=== PATIENT | male | born 1955 | race Caucasian/White ===

== ENCOUNTER 2017-01-10 17:53 | Observation (INO) ==
--- NOTE | 2017-01-10 18:24 | Emergency Department Note ---
Disposition Clinical Impression: Chest pain, Fall, Alcohol intoxication, Pleural effusion, COPD (chronic obstructive pulmonary disease), Abnormal EKG, Hallucinosis Disposition: Admitted As Inpatient Referrals: Alberto Yung Jr, MD [Primary Care Provider] - Forms: ED Satisfaction Letter General Adult HPI - General Chief complaint: ED Chest Pain Stated complaint: fall left shoulder pain and chest pain Time Seen by Provider: 01/10/17 18:03 - History of Present Illness HPI Narrative: 61-year-old male reports to the emergency department complaining of chest pain. He was brought in by EMS who found him at home laying on the ground. The patient can describe fully what happened. He thinks he may have passed out he is not sure he was in the bathroom when he walked out the next thing he knew his laying on the ground. The patient complains of shoulder pain. He also complains of chest pain. The patient reports the chest pain was sort of in the middle of the chest prior to him passing out he has not had any coughing of blood leg swelling or pain or fever. The patient has had some slight shortness of breath. He states he drinks several beers a day. There is no history of convulsion. There are reports he may have hit his head but he denies any significant head injury. There is no history of Dorota see's. There is no history of abdominal pain vomiting or diarrhea no history of bleeding or laceration no lower extremity pain and no problems moving the arms or legs independently. No numbness or weakness in the arms or legs no dysarthria or luis a confusion reported or noted. There is no history of anticoagulant therapy at this time. The patient had an echocardiogram and previous stress test back in 2014 which showed no major abnormalities. There is no history of coronary stent. He does have a history of COPD. There is no history of diabetes but he does have a reported history of hypertension. Pain Scale: 8 - Related Data Previous Rx's Medication Instructions Recorded HYDROcodone/Acet 5/325 mg [Jarrell 1 tab PO Q6HR PRN #20 tablet 07/05/15 5-325 mg] Naproxen [Naprosyn] 500 mg PO BID PRN #20 tablet 07/05/15 Diazepam [Valium] 5 mg PO TID #15 tablet 04/25/16 Diclofenac Sodium [Voltaren] 75 mg PO Q8HR #30 tablet. 04/25/16 Hydrocodone/Acetaminophen [Jarrell 1 - 2 tab PO Q6H PRN #15 tab 04/25/16 5-325 Tablet] Acetaminophen [Tylenol] 650 mg PO Q6HR PRN #12 tablet 10/04/16 Naproxen [Naprosyn] 500 mg PO BID 10 Days 11/24/16 Allergies Allergy/AdvReac Type Severity Reaction Status Date / Time ibuprofen Allergy Itching Verified 10/04/16 21:05 Past Medical History - Past Medical History Medical history: Reports: hypertension, COPD Surgical history: Reports: orthopedic, other Psychiatric history: Reports: no psych history, depression - Social History Smoking Status: Current every day smoker Smokeless Tobacco Status: No Alcohol use: Reports: heavy Drug use: Reports: none Physical Exam - General Limitations: no limitations General appearance: alert, in no apparent distress, other (The patient does smell of alcohol.) - Head Head exam: atraumatic, normocephalic, normal inspection - Eye Eye exam: Present: normal appearance, PERRL, EOMI. Absent: scleral icterus, conjunctival injection, miosis, mydriasis - ENT ENT exam: normal exam, normal oropharynx, mucous membranes moist, TM's normal bilaterally, normal external ear exam - Neck Neck exam: Present: normal inspection, full ROM, trachea midline. Absent: tenderness, meningismus - Chest Chest inspection: Present: normal inspection, symmetric chest wall rise. Absent : tenderness - Respiratory Respiratory exam: Present: normal lung sounds bilaterally. Absent: respiratory distress - Cardiovascular Cardiovascular exam: Present: regular rate, normal rhythm, normal heart sounds - Abdominal Exam Abdominal exam: Present: soft, Non-Tender, normal bowel sounds. Absent: tenderness, distention, guarding, rebound, rigidity, trauma, pulsatile mass - Extremities Exam Extremities exam: Present: normal inspection, full ROM, normal capillary refill. Absent: tenderness, pedal edema, joint swelling, calf tenderness - Expanded Lower Extremity Exam Neurovascular/Tendon exam: Present: normal capillary refill. Absent: motor deficit, sensory deficit, tendon deficit, extremity cold to touch - Back Exam Back exam: Present: normal inspection, full ROM. Absent: tenderness, CVA tenderness (R), CVA tenderness (L), vertebral tenderness - Neurological Exam Neurological exam: Present: alert, oriented X3, CN II-XII intact. Absent: motor sensory deficit - Psychiatric Psychiatric exam: Present: normal affect, normal mood - Skin Skin exam: Present: warm, dry, intact, normal color. Absent: rash, cyanosis, diaphoresis, erythema, pallor, mottled Course - Reevaluation(s) Reevaluation #1: I had discussed with Dr. Luevano assistant pastry chef secondary to the the EKGs machine reading of acute AL, it does not appear to be significantly different than the previous EKG. I texted pictures to her number at 6:16 PM. Reevaluation #2: I spoke with Dr. Penn we both feel the EKGs do not show significant changes from previous. This does not appear to be a STEMI. There are questionable Brugada changes on the old EKG however. Vital Signs Temperature 97.3 F L 01/10/17 17:55 Pulse Rate 55 01/10/17 17:55 Respiratory Rate 20 01/10/17 17:55 Blood Pressure 127/92 01/10/17 17:55 O2 Sat by Pulse Oximetry 100 01/10/17 17:55 Temperature 97.6 F 01/10/17 22:57 Pulse Rate 55 01/10/17 22:57 Respiratory Rate 18 01/10/17 22:57 Blood Pressure 110/85 01/10/17 22:57 O2 Sat by Pulse Oximetry 94 L 01/10/17 22:57 Oxygen Delivery Oxygen Delivery Room Air Medical Decision Making - MDM Narrative Medical decision making narrative: The patient was initially recalcitrant for admission. He is an every day drinker. His family members report he is not safe to go home and did not think he can manage himself at home they are worried about a worsening medical or alcoholic state. In emergency department the patient was given some Ativan for his agitation. During his stay he began to have visual hallucinosis. I have consulted with the hospitalist assistant commissioner based on the patient's complaints of chest pain, abnormal EKG, alcohol intoxication, possible syncope, and hallucinosis. The patient does not have evidence of luis a head trauma, his CT scan of his head and neck are negative. The family reported that he did hit his head and complained of neck pain afterwards. The patient displays no focal neurologic defects. His EKG was reviewed with the assistant pastry chef on-call Dr. Penn, we both feel this is stable impaired to previous. Given the patient has multiple comorbidities, apparent confusion, alcohol intoxication, possible syncope, even a possibly a seizure, and may be entering alcohol withdrawal or possibly even DTs, I thought it would be appropriate to monitor the patient in the hospital. I reviewed the case with Dr. Thayer who has accepted the patient to his care. - Lab Data Lab results reviewed: Yes I reviewed the patient's lab results. Result diagrams: 01/10/17 19:06 01/10/17 19:06 Lab Results 01/10/17 01/10/17 01/10/17 Range/Units 19:06 19:06 19:06 WBC 6.8 (4.3-11.1) K/mcL RBC 5.07 (4.19-5.50) M/mcL Hgb 16.1 (12.9-16.9) g/dL Hct 47.3 (37.5-50.1) % MCV 93.3 (83.0-100.0) fL MCH 31.8 (28.0-33.3) pg MCHC 34.0 (31.6-35.5) g/dL RDW 12.8 (11.5-14.5) % Plt Count 255 (140-400) K/mcL MPV 9.4 (9.4-12.4) fL Immature Gran % 0.3 (0-4) % Seg Neutrophils % 53.2 % Lymphocytes % 37.5 % Monocytes % 3.5 % Eosinophils % 4.0 % Basophils % 1.5 % Neutrophils # 3.6 (1.6-8.9) K/mcL Lymphocytes # 2.5 (0.6-4.6) K/mcL Monocytes # 0.2 (0.0-1.3) K/mcL Eosinophils # 0.3 (0.0-0.6) K/mcL Basophils # 0.1 (0.0-0.2) K/mcL Immature Plt Fraction 4.7 (1.1-6.1) % PT 10.8 (9.4-12.1) Seconds INR 1.0 APTT 33.7 (26.0-36.0) Seconds D-Dimer 286 (0-500) ng/mLFEU Sodium 136 (136-145) mEq/L Potassium 4.2 (3.5-4.5) mEq/L Chloride 101 (98-109) mEq/L Carbon Dioxide 22 (19-29) mEq/L BUN 5 L (8-26) mg/dL Creatinine 0.70 L (0.72-1.25) mg/dL Est GFR ( Amer) > 60 (> 60) Est GFR (Non-Af Amer) > 60 (> 60) BUN/Creatinine Ratio 7 (6-26) Glucose 82 (70-99) mg/dL Calculated Osmolality 278 L (280-300) Lactic Acid (0.5-2.2) mmol/L Calcium 8.9 (8.6-10.8) mg/dL Total Bilirubin 0.6 (0.2-1.2) mg/dL Direct Bilirubin 0.3 (0.0-0.5) mg/dL Indirect Bilirubin 0.3 (0.0-1.2) mg/dL AST 28 (5-34) Units/L ALT 17 (0-55) Units/L Alkaline Phosphatase 75 (38-126) Units/L Troponin I (0-0.03) ng/mL B-Natriuretic Peptide (0-100) pg/mL Serum Total Protein 7.4 (6.0-8.3) g/dL Albumin 4.4 (3.5-5.0) g/dL Globulin 3.0 (2.4-3.5) g/dL Albumin/Globulin Ratio 1.5 (1.1-2.2) Lipase 9 (8-78) Units/L Salicylates < 5.0 L (15-30) mg/dL Urine Opiates Screen (Zteikr=915) ng/mL Acetaminophen < 1.0 L (10-30) mcg/mL Ur Barbiturates Screen (Oubiyl=555) ng/mL Ur Phencyclidine Scrn (Cutoff=25) ng/mL Ur Amphetamines Screen (Injwen=8433) ng/mL U Benzodiazepines Scrn (Roekdf=994) ng/mL Urine Cocaine Screen (Cutoff= 300) ng/mL U Marijuana (THC) Screen (Cutoff = 50) ng/mL Ethyl Alcohol 317 H (0-10) mg/dL 01/10/17 01/10/17 01/10/17 Range/Units 19:06 19:06 20:34 WBC (4.3-11.1) K/mcL RBC (4.19-5.50) M/mcL Hgb (12.9-16.9) g/dL Hct (37.5-50.1) % MCV (83.0-100.0) fL MCH (28.0-33.3) pg MCHC (31.6-35.5) g/dL RDW (11.5-14.5) % Plt Count (140-400) K/mcL MPV (9.4-12.4) fL Immature Gran % (0-4) % Seg Neutrophils % % Lymphocytes % % Monocytes % % Eosinophils % % Basophils % % Neutrophils # (1.6-8.9) K/mcL Lymphocytes # (0.6-4.6) K/mcL Monocytes # (0.0-1.3) K/mcL Eosinophils # (0.0-0.6) K/mcL Basophils # (0.0-0.2) K/mcL Immature Plt Fraction (1.1-6.1) % PT (9.4-12.1) Seconds INR APTT (26.0-36.0) Seconds D-Dimer (0-500) ng/mLFEU Sodium (136-145) mEq/L Potassium (3.5-4.5) mEq/L Chloride (98-109) mEq/L Carbon Dioxide (19-29) mEq/L BUN (8-26) mg/dL Creatinine (0.72-1.25) mg/dL Est GFR ( Amer) (> 60) Est GFR (Non-Af Amer) (> 60) BUN/Creatinine Ratio (6-26) Glucose (70-99) mg/dL Calculated Osmolality (280-300) Lactic Acid 2.2 (0.5-2.2) mmol/L Calcium (8.6-10.8) mg/dL Total Bilirubin (0.2-1.2) mg/dL Direct Bilirubin (0.0-0.5) mg/dL Indirect Bilirubin (0.0-1.2) mg/dL AST (5-34) Units/L ALT (0-55) Units/L Alkaline Phosphatase (38-126) Units/L Troponin I 0.00 (0-0.03) ng/mL B-Natriuretic Peptide 81 (0-100) pg/mL Serum Total Protein (6.0-8.3) g/dL Albumin (3.5-5.0) g/dL Globulin (2.4-3.5) g/dL Albumin/Globulin Ratio (1.1-2.2) Lipase (8-78) Units/L Salicylates (15-30) mg/dL Urine Opiates Screen (Vbaihb=043) ng/mL Acetaminophen (10-30) mcg/mL Ur Barbiturates Screen (Muhfcc=537) ng/mL Ur Phencyclidine Scrn (Cutoff=25) ng/mL Ur Amphetamines Screen (Ujfntk=0610) ng/mL U Benzodiazepines Scrn (Akezoz=214) ng/mL Urine Cocaine Screen (Cutoff= 300) ng/mL U Marijuana (THC) Screen (Cutoff = 50) ng/mL Ethyl Alcohol (0-10) mg/dL 01/10/17 Range/Units 20:47 WBC (4.3-11.1) K/mcL RBC (4.19-5.50) M/mcL Hgb (12.9-16.9) g/dL Hct (37.5-50.1) % MCV (83.0-100.0) fL MCH (28.0-33.3) pg MCHC (31.6-35.5) g/dL RDW (11.5-14.5) % Plt Count (140-400) K/mcL MPV (9.4-12.4) fL Immature Gran % (0-4) % Seg Neutrophils % % Lymphocytes % % Monocytes % % Eosinophils % % Basophils % % Neutrophils # (1.6-8.9) K/mcL Lymphocytes # (0.6-4.6) K/mcL Monocytes # (0.0-1.3) K/mcL Eosinophils # (0.0-0.6) K/mcL Basophils # (0.0-0.2) K/mcL Immature Plt Fraction (1.1-6.1) % PT (9.4-12.1) Seconds INR APTT (26.0-36.0) Seconds D-Dimer (0-500) ng/mLFEU Sodium (136-145) mEq/L Potassium (3.5-4.5) mEq/L Chloride (98-109) mEq/L Carbon Dioxide (19-29) mEq/L BUN (8-26) mg/dL Creatinine (0.72-1.25) mg/dL Est GFR ( Amer) (> 60) Est GFR (Non-Af Amer) (> 60) BUN/Creatinine Ratio (6-26) Glucose (70-99) mg/dL Calculated Osmolality (280-300) Lactic Acid (0.5-2.2) mmol/L Calcium (8.6-10.8) mg/dL Total Bilirubin (0.2-1.2) mg/dL Direct Bilirubin (0.0-0.5) mg/dL Indirect Bilirubin (0.0-1.2) mg/dL AST (5-34) Units/L ALT (0-55) Units/L Alkaline Phosphatase (38-126) Units/L Troponin I (0-0.03) ng/mL B-Natriuretic Peptide (0-100) pg/mL Serum Total Protein (6.0-8.3) g/dL Albumin (3.5-5.0) g/dL Globulin (2.4-3.5) g/dL Albumin/Globulin Ratio (1.1-2.2) Lipase (8-78) Units/L Salicylates (15-30) mg/dL Urine Opiates Screen Negative (Glebvq=016) ng/mL Acetaminophen (10-30) mcg/mL Ur Barbiturates Screen Negative (Jnlcfu=797) ng/mL Ur Phencyclidine Scrn Negative (Cutoff=25) ng/mL Ur Amphetamines Screen Negative (Xmbtgm=1127) ng/mL U Benzodiazepines Scrn Negative (Hsssxu=189) ng/mL Urine Cocaine Screen Negative (Cutoff= 300) ng/mL U Marijuana (THC) Screen Negative (Cutoff = 50) ng/mL Ethyl Alcohol (0-10) mg/dL - Radiology Data Radiology results reviewed: Yes I reviewed the patient's radiology results.
[2017-01-10 19:16] LABS: Basophils # 0.1 K/mcL (0.0-0.2); Basophils % 1.5 %; Eosinophils # 0.3 K/mcL (0.0-0.6); Hematocrit 47.3 % (37.5-50.1); Hemoglobin 16.1 g/dL (12.9-16.9); Immature Granulocytes % 0.3 % (0-4); Immature Platelets 4.7 % (1.1-6.1); Lymphocytes # 2.5 K/mcL (0.6-4.6); Lymphocytes % 37.5 %; Mean Corpuscular Hemoglobin 31.8 pg (28.0-33.3); Mean Corpuscular Volume 93.3 fL (83.0-100.0); Mean Platelet Volume 9.4 fL (9.4-12.4); Monocytes # 0.2 K/mcL (0.0-1.3); Monocytes % 3.5 %; Neutrophils # 3.6 K/mcL (1.6-8.9); Platelet Count 255 K/mcL (140-400); Red Blood Count 5.07 M/mcL (4.19-5.50); Red Cell Distribution Width 12.8 % (11.5-14.5); Segmented Neutrophils % 53.2 %
[2017-01-10 19:20] LABS: Prothrombin Time 10.8 Seconds (9.4-12.1)
[2017-01-10 19:22] LABS: Activated Partial Thrombo Time 33.7 Seconds (26.0-36.0)
[2017-01-10 19:31] LABS: Alanine Aminotransferase 17 Units/L (0-55); Albumin 4.4 g/dL (3.5-5.0); Albumin/Globulin Ratio 1.5 (1.1-2.2); Alkaline Phosphatase 75 Units/L (38-126); Aspartate Amino Transferase 28 Units/L (5-34); BUN/Creatinine Ratio 7 (6-26); Bilirubin,Direct 0.3 mg/dL (0.0-0.5); Bilirubin,Indirect 0.3 mg/dL (0.0-1.2); Bilirubin,Total 0.6 mg/dL (0.2-1.2); Calcium 8.9 mg/dL (8.6-10.8); Carbon Dioxide 22 mEq/L (19-29); Chloride 101 mEq/L (98-109); Ethanol 317 mg/dL (0-10); Glucose 82 mg/dL (70-99); Lipase 9 Units/L (8-78); Osmolality,Calculated 278 (280-300); Potassium 4.2 mEq/L (3.5-4.5); Sodium 136 mEq/L (136-145); Total Protein 7.4 g/dL (6.0-8.3); eGFR For African Americans > 60 (> 60); eGFR For Non-African Americans > 60 (> 60)
[2017-01-10 19:32] LABS: Acetaminophen < 1.0 mcg/mL (10-30); Blood Urea Nitrogen 5 mg/dL (8-26); Salicylate < 5.0 mg/dL (15-30)
[2017-01-10] MEDS ORDERED: Ipratropium/Albuterol Neb 3 ML IH ONE (19:36)
[2017-01-10] MEDS ORDERED: Aspirin 325 MG TABLET PO ONE (20:41)
[2017-01-10] MEDS ORDERED: *HR* LORazepam 2 MG/ML VIAL IVP ONE (20:46)
[2017-01-10 21:09] LABS: Amphetamine Screen,Urine Negative ng/mL (Cutoff=1000); Barbiturate Screen,Urine Negative ng/mL (Cutoff=200); Benzodiazepines Screen,Urine Negative ng/mL (Cutoff=200); Cannabinoid Screen,Urine Negative ng/mL (Cutoff = 50); Cocaine Screen,Urine Negative ng/mL (Cutoff= 300); Opiate Screen,Urine Negative ng/mL (Cutoff=300); Phencyclidine Screen,Urine Negative ng/mL (Cutoff=25)
[2017-01-11] MEDS ORDERED: Naloxone 0.4 MG/ML INJ IVP PRN (01:42)
[2017-01-11] MEDS ORDERED: Acetaminophen 325 MG TABLET PO PRN (01:42)
[2017-01-11] MEDS ORDERED: 0.9 % Sodium Chloride 1,000 ML IVC SCH ×2 (01:45→02:20)
--- NOTE | 2017-01-11 01:52 | Internal Med History&Physical ---
Date of Encounter: 01/11/17 Time of Encounter: 01:47 Assessment and Plan (1) DVT prophylaxis Current visit: Yes Status: Acute Ambulate in the hallway 3 times a day. (2) Abnormal EKG Current visit: Yes Status: Acute EKG is unchanged from the one in August 2015. That EKG reads Brugada 3 pattern , nondiagnostic. It appears that the patient had some past workup for Brugada syndrome. Will maintain the patient on telemetry, repeat EKG in the morning and consult cardiology (3) Alcohol intoxication Current visit: Yes Status: Acute IV fluids. Monitor for withdrawal. Thiamine folate and vitamin B12 IV. Qualifiers: Complication of substance-induced condition: with delirium Qualified Code(s ): F10.121 - Alcohol abuse with intoxication delirium (4) COPD (chronic obstructive pulmonary disease) Current visit: Yes Status: Acute Inhaled DuoNeb as needed. Qualifiers: COPD type: chronic bronchitis Chronic bronchitis type: simple Qualified Code(s): J41.0 - Simple chronic bronchitis (5) Chest pain Current visit: Yes Status: Acute Rule out ACS. We will obtain a nuclear stress test, the EKG stress test from 2014 shows borderline EKG changes. Trend troponin. We will maintain the patient on telemetry. Start aspirin daily. Qualifiers: Chest pain type: precordial pain Qualified Code(s): R07.2 - Precordial pain (6) Syncope Current visit: Yes Status: Acute We will monitor on telemetry. Check echocardiogram. Consult cardiology due to concern for Brugada syndrome. Qualifiers: Syncope type: unspecified Qualified Code(s): R55 - Syncope and collapse Internal Medicine - H&P: HPI Chief complaint: Loss of consciousness Admitted From: Emergency Dept Plans for Post Hospital Care: Home History of present illness: Mr. Galvan is a 61 year old male with past medical history significant for COPD , tobacco and alcohol abuse who was brought to the emergency department after he was found by EMS after he lost consciousness and was lying on the ground at home. The history provided by the patient is limited by alcohol intoxication. Per ED documentation he he reported passing out at home. He states he consumed 2 beers today. He has told me he experienced left-sided sharp chest pain that was 4/10 in intensity and lasted for about 10 minutes while at rest. Denies associated nausea or diaphoresis and shortness of breath. His EKG showed nonspecific changes and his troponin was negative. A 10 point review of systems was negative except as above. Family history was negative for premature coronary artery disease or sudden cardiac in both parents and siblings. Social history: Patient lives in a trailer home, he is unemployed. He smokes 30 cigarettes a day reports drinking 3 cans of beer a day. Past Med Surg Social Fam HX - Past Medical History Medical history: hypertension, COPD Psychiatric history: depression - Past Surgical History Surgical History: orthopedic, other - Social History Smoking Status: Current every day smoker Smokeless Tobacco Status: No Alcohol use: heavy Drug use: none - Family History Son Adopted: [place]: Emilio Galvan Living Status: Still Living Hx Family Cardiac Disorders: No Hx Family Respiratory Disorders: No Hx Family Cancer: No Hx Family GI Disorders: No Hx Family Genitourinary Disorders: No Hx Family Endocrine Disorder: No Hx Family Musculoskeletal Disorders: No Hx Family Neuromuscular Disorders: No Hx Family Neurologic Disorders: No Hx Family HEENT Disorders: No Hx Family Autoimmune Disorders: No Hx Family Reproductive Disorders: No Hx Family Psychosocial Disorders: No Hx Family Medical Disorders: No Internal Medicine - H&P: Meds Naproxen [Naprosyn] 500 mg PO BID PRN #20 tablet 07/05/15 [Rx] Gabapentin [Neurontin] 600 mg PO 01/11/17 [History] Meloxicam [Meloxicam] 01/11/17 [History] Allergies ibuprofen Allergy (Verified 10/04/16 21:05) Itching All Systems PM: A 10-system review of systems was performed and is negative for pertinent findings except as documented above in the HPI. - Constitutional Vitals: Temp Pulse Resp BP Pulse Ox 97.6 F 54 14 89/55 93 L 01/11/17 00:17 01/11/17 00:17 01/11/17 00:17 01/11/17 00:17 01/11/17 00:17 General appearance: Present: disheveled, A&O X 3 - Eye Eye exam: Present: PERRL, conjuntiva pink, sclera anicteric Pupils: Present: PERRL - Respiratory Respiratory exam: Present: CTAB. Absent: accessory muscle use, rales, rhonchi, wheezes - Cardiovascular Cardiovascular exam: Present: RRR, +S1, +S2. Absent: diastolic murmur, gallop, rubs, systolic murmur - GI/Abdominal GI/Abdominal exam: Present: normal bowel sounds, soft, no peritoneal signs. Absent: distended, tenderness - Extremities Exam Extremities exam: Present: warm, radial pulses palpable and symetrical. Absent : calf tenderness, cyanotic, pedal edema - Skin Skin exam: Present: dry, intact Internal Med - H&P Results - Labs CBC & Chem 7: 01/10/17 19:06 01/10/17 19:06 - EKG Data Prior EKG available for review: yes When compared to previous EKG: there is no significant change EKG comments: 01/11/17 01:53 Sinus bradycardia 55 bpm with QS complex sentence and V1 to V3 and J-point elevation. This is unchanged when compared with the EKG from 08/25/2015. - Impressions A Holter monitor study from 2014 revealed rare PVCs, no malignant arrhythmias. Echocardiogram at that time showed normal ejection fraction. Stress test August 2015 showed borderline EKG changes of ischemia. A perfusion study was suggested.
[2017-01-11] MEDS ORDERED: Ipratropium/Albuterol Neb 3 ML IH PRN (02:03)
[2017-01-11 03:21] LABS: BUN/Creatinine Ratio 9 (6-26); Blood Urea Nitrogen 6 mg/dL (8-26); Calcium 8.6 mg/dL (8.6-10.8); Carbon Dioxide 20 mEq/L (19-29); Chloride 104 mEq/L (98-109); Glucose 57 mg/dL (70-99); Osmolality,Calculated 279 (280-300); Potassium 4.1 mEq/L (3.5-4.5); Sodium 137 mEq/L (136-145); eGFR For African Americans > 60 (> 60); eGFR For Non-African Americans > 60 (> 60)
[2017-01-11 03:58] VITALS: BP 113/64
[2017-01-11] MEDS ORDERED: Aspirin 81 MG TAB.CHEW PO SCH (09:00)
[2017-01-11] MEDS ORDERED: Thiamine (B-1) 100 MG, Folic Acid 1 MG, MVI, adult with vitamin K 10 ML in 0.9 % Sodi... IVPB SCH (18:00)
--- NOTE | 2017-01-13 06:19 | Electrocardiograph Report ---
[address] [address] Test Date: 2017-01-10 Pat Name: Cedric Galvan Department: 105 Room: 3B13 Gender: M Batch Plant Operator: : [id number] Requested By: Roverto Berrios Order Number: [id number] Reading MD: Paolo Tong MD Measurements Intervals [place] Rate: 55 P: 66 WA: 198 QRS: -1 QRSD: 104 T: 4 QT: 426 QTc: 414 Interpretive Statements SINUS BRADYCARDIA POSSIBLE LEFT VENTRICULAR HYPERTROPHY WITH SECONDARY ST CHANGES Electronically Signed On 01-13-2017 6:17:52 EST by Paolo Tong MD
--- NOTE | 2017-01-13 07:59 | Discharge Summary ---
Date of Encounter: 01/11/17 Time of Encounter: 01:00 - Discharge Diagnosis (1) DVT prophylaxis Priority: Secondary Status: Acute (2) Abnormal EKG Priority: Secondary Status: Acute (3) Alcohol intoxication Priority: Secondary Status: Acute Qualifiers: Complication of substance-induced condition: with delirium Qualified Code(s ): F10.121 - Alcohol abuse with intoxication delirium (4) COPD (chronic obstructive pulmonary disease) Priority: Secondary Status: Acute Qualifiers: COPD type: chronic bronchitis Chronic bronchitis type: simple Qualified Code(s): J41.0 - Simple chronic bronchitis (5) Chest pain Priority: Primary Status: Acute Qualifiers: Chest pain type: precordial pain Qualified Code(s): R07.2 - Precordial pain (6) Syncope Priority: Secondary Status: Acute Qualifiers: Syncope type: unspecified Qualified Code(s): R55 - Syncope and collapse - Discharge Medications Home Medications: Naproxen [Naprosyn] 500 mg PO BID PRN #20 tablet 07/05/15 [Rx] Gabapentin [Neurontin] 600 mg PO 01/11/17 [History] Meloxicam [Meloxicam] 01/11/17 [History] Allergies/Adverse Reactions: Allergies ibuprofen Allergy (Verified 10/04/16 21:05) Itching Date of admission: 01/10/17 23:36 Primary care physician: Alberto Yung Jr, MD Consults: 01/11/17 01:44 Consult to Physician [CONS] Routine Consulting Provider: Hannah Luevano Reason for Consult: Syncope, questionable Brugada pattern Call Completed: Yes - Patient Status Disposition: Left Against Medical Advice Condition: Good Functional capacity at discharge: independent ambulation Overall status at discharge: patient is back to baseline - Discharge Instructions Follow Up With: Alberto Yung Jr, MD [Primary Care Provider] - - Diet and Activity Diet: advance to your usual diet Interval History: The patient was placed in the hospital for workup of chest pain and syncope. Endocrine he was admitted he was reluctant to stay in the hospital but his family convinced him to stay. He was alcohol intoxicated. During the interactive marketing strategist he aroused and he was quite lucid and he decided that he does not want to pursue any more testing in the hospital and would like to leave AMA. The nursing staff informed him of the risks of leaving the hospital AGAINST MEDICAL ADVICE. He signed the papers and left the hospital. Hospital course: Mr. Galvan is a 61 year old male - Time Spent with Patient Total time spent providing and/or coordinating discharge services: - Constitutional Vitals: Temp Pulse Resp BP Pulse Ox 98.0 F 55 14 113/64 94 L 01/11/17 03:54 01/11/17 03:54 01/11/17 03:54 01/11/17 03:54 01/11/17 03:54 General appearance: Present: disheveled, A&O X 3 - Respiratory Respiratory exam: Present: CTAB. Absent: accessory muscle use, rales, rhonchi, wheezes - Cardiovascular Cardiovascular exam: Present: RRR, +S1, +S2. Absent: diastolic murmur, gallop, rubs, systolic murmur
== END 2017-01-11 04:20 | disposition left against medical advice (07) ==
LOC: EMEROO 17:53 → 3BNU 17:53
PROVIDERS: ADMIT Internal Medicine; ATTEND Nurse Practitioner Family